=== PATIENT | female | born 1990 | race Caucasian/White ===

== ENCOUNTER → 2019-10-02 09:08 | Outpatient (CLI) | payer MEDICAID, SELFPAY ==
[2019-10-02 11:30] LABS: HCG,Quantitative 122 mIU/mL
== END ==
PROVIDERS: Visit Provider Nurse Practitioner Obstetrics & Gynecology
DX: Z32.00 Encounter for pregnancy test, result unknown (principal)
CPT/HCPCS: 36415; 84702

== ENCOUNTER → 2019-10-06 15:32 | Outpatient (CLI) | payer MEDICAID, SELFPAY ==
[2019-10-06 16:01] LABS: Basophils # 0.1 K/mm3 (0-0.2); Basophils % 0.5 % (0.1-2.0); Eosinophils # 0.1 K/mm3 (0.0-0.4); Eosinophils % 1.2 % (0.1-12.0); Hematocrit 46.4 % (37.0-47.0); Hemoglobin 14.8 g/dL (12.2-16.2); Lymphocytes # 2.2 K/mm3 (0.7-4.5); Lymphocytes % 24.8 % (10-50); Mean Corpuscular Volume 99.9 fl (81-99); Mean Platelet Volume 8.9 fl (7.4-10.4); Monocytes # 0.2 K/mm3 (0.1-1.0); Monocytes % 2.4 % (1.7-9.3); Neutrophils # 6.3 K/mm3 (1.8-7.8); Neutrophils % 71.1 % (37.0-80.0); Platelet Count 241 K/mm3 (142-424); Red Blood Count 4.65 M/mm3 (4.20-5.40); Red Cell Distribution Width 12.7 % (11.5-17.5); White Blood Count 8.8 K/mm3 (4.8-10.8)
[2019-10-06 17:26] LABS: HCG,Quantitative 850 mIU/mL
[2019-10-08 08:13] LABS: Hepatitis B Surface Antigen Negative (Negative); Hepatitis C Antibody <0.1 s/co ratio (0.0-0.9)
[2019-10-08 13:20] LABS: HIV Screen 4th Generation wRfx Non Reactive (Non Reactive); Rapid Plasma Reagin Ab Titer Non Reactive (NonRea<1:1)
== END ==
PROVIDERS: Visit Provider Nurse Practitioner Obstetrics & Gynecology
DX: Z34.90 Encounter for supervision of normal pregnancy, unspecified, unspecified trimester (principal)
CPT/HCPCS: 36415; 84702; 85025; 86592; 86703; 86762; 86850; 87340; 87380; G0432

== ENCOUNTER → 2019-10-15 12:46 | Outpatient (CLI) | payer MEDICAID, SELFPAY ==
--- NOTE | 2019-10-15 12:49 | US_ITS ---
PROCEDURE: US OB TRANSVAGINAL CLINICAL INDICATION: US OB Dates COMPARISON: No exams were available for comparison FINDINGS: An intrauterine gestational sac is present with a pole with a crown-rump length of 0.26 cm correlating to gestational age of 5 weeks 6 days. heart tones are present with an FHR of 93 bpm. Yolk sac is noted. The uterus is retroverted. IMPRESSION: There is a live intrauterine gestation with a crown-rump length of 0.26 cm correlating to gestational age of 5 weeks 6 days. heart tones are noted. Estimated due date by Ultrasound is 06/10/2020 Dictated by: Hari Frank MD 10/15/2019 16:46 Electronically signed by Hari Frank MD in [place] 10/15/2019 16:46
== END ==
PROVIDERS: Visit Provider Nurse Practitioner Obstetrics & Gynecology
DX: O26.841 Uterine size-date discrepancy, first trimester (principal)
CPT/HCPCS: 76817